=== PATIENT | male | born 1980 | race African-American/Black ===

== ENCOUNTER 2017-12-20 09:26 | Emergency (ER) | payer OTHER ==
[~2017-12-20] VITALS: Ht 185.4 cm; Wt 104.3 kg
--- NOTE | ~2017-12-20 | EKG ---
[address] [place] [address] ELECTROCARDIOGRAM REPORT Name: BELINDA NICHOLS Room #: DEP ALEISHA Cleary#: [id number] Admission: 12/20/17 Attend Phys: Discharge: 12/20/17 Date of : 78 Report #: [id number] THIS REPORT FOR: //name// [facility] ED Test Date: 2017-12-20 Test Time: 09:44:45 Pat Name: BELINDA NICHOLS Department: Room: Gender: Grassroots Organizer: nmd : 1980 Requested By: Nessa Hanks Order Number: [id number] MD: Giovani Venegas Measurements Intervals [place] Rate: 77 P: 44 NV: 148 QRS: -15 QRSD: 89 T: 7 QT: 365 QTc: 414 Interpretive Statements Sinus rhythm Baseline wander in lead(s) V1 Compared to ECG 09/08/2011 19:52:26 No significant changes Electronically Signed On 12-20-2017 16:32:08 CDT by Giovani Venegas [email or web address] <ELECTRONICALLY SIGNED> By: Giovani Venegas MD, [facility] 12/20/17 1632 0944 0944 Giovani Venegas MD, FACC /EPI
[~2017-12-20 09:26] MED LIST: TOPROL XL25 MG
[2017-12-20 09:51] LABS: ABSOLUTE NEUTROPHILS 2.9 thou/uL (1.4-8.2); BASOPHILS 0.4 % (0.0-2.0); EOSINOPHILS 0.7 % (0.0-3.0); HEMATOCRIT 43.9 % (42.0-52.0); HEMOGLOBIN 15.2 gm/dL (14.0-18.0); LYMPHOCYTES 41.1 % (24.0-44.0); MCH 26.9 pg (26.0-34.0); MCHC 34.7 g/dL (28.0-37.0); MCV 77.5 fL (80.0-100.0); MONOCYTES 8.7 % (1.0-8.0); PLATELET COUNT 223 thou/uL (150-400); POLYS 49.1 % (36.0-66.0); RBC 5.67 mil/uL (4.50-6.00); RDW 14.1 % (10.5-14.5); WBC 5.9 thou/uL (4.0-11.0)
[2017-12-20 09:58] LABS: ANION GAP 5 mmol/L (7-16); BUN 12 mg/dL (7-18); CALCIUM 9.3 mg/dL (8.5-10.1); CHLORIDE 101 mmol/L (98-107); CO2 28 mmol/L (21-32); CREATININE 1.2 mg/dL (0.7-1.3); GLUCOSE 123 mg/dL (74-106); POTASSIUM 3.5 mmol/L (3.5-5.1); SODIUM 134 mmol/L (136-145)
[2017-12-20 10:07] LABS: TROPONIN-I <0.06 ng/mL (<0.06)
[2017-12-20 11:07] VITALS: BP 150/92
== END 2017-12-20 11:07 | disposition home or self-care (01) ==
LOC: ER 09:26
PROVIDERS: Emergency Medicine
DX: R00.2 Palpitations (principal); Z88.1 Allergy status to other antibiotic agents

== ENCOUNTER 2020-04-27 00:53 | Emergency (ER) | payer BC, OTHER ==
[~2020-04-27] VITALS: Ht 185.4 cm; Wt 104.3 kg
[2020-04-27] MEDS ORDERED: CHILDREN'S ASPI81 M1 PO (01:01)
[2020-04-27 02:14] LABS: HEMATOCRIT 44.1 % (42.0-52.0); HEMOGLOBIN 14.5 gm/dL (14.0-18.0); MCHC 32.8 g/dL (28.0-37.0); MCV 79.3 fL (80.0-100.0); RBC 5.57 mil/uL (4.50-6.00); RDW 14.4 % (10.5-14.5); WBC 8.2 thou/uL (4.0-11.0)
[2020-04-27 02:17] LABS: CALCIUM 8.9 mg/dL (8.5-10.1); CREATININE 1.4 mg/dL (0.7-1.3); MAGNESIUM 1.5 mg/dL (1.8-2.4); POTASSIUM 3.3 mmol/L (3.5-5.1)
[2020-04-27] MEDS ORDERED: TOPROL XL25 MG PO (06:01)
[2020-04-27 06:19] VITALS: BP 139/97
--- NOTE | 2020-04-27 07:30 | EKG ---
[facility] [place] [address] ELECTROCARDIOGRAM REPORT Name: BELINDA NICHOLS Room #: DEP [facility]#: [id number] Admission: 04/27/20 Attend Phys: Discharge: 04/27/20 Date of : [birth year] Report #: [id number] THIS REPORT FOR: cc: NO FAMILY PHYSICIAN or PCP NO FAMILY PHYSICIAN or PCP Rd Matos MD [facility] ~ THIS REPORT FOR: //name// [facility] ED Test Date: 2020-04-27 Test Time: 01:08:26 Pat Name: BELINDA NICHOLS Department: Room: Gender: M Steam Presser: NNAMDI : 1980 Requested By: Asaf Salinas Order Number: [id number] MD: Rd Matos Measurements Intervals [place] Rate: 121 P: MA: QRS: -17 QRSD: 85 T: 0 QT: 315 QTc: 447 Interpretive Statements Atrial fibrillation Borderline left axis deviation Compared to ECG 12/20/2017 09:44:45 Sinus rhythm no longer present Electronically Signed On 04-27-2020 7:29:[address] Matos [email or web address] <ELECTRONICALLY SIGNED> By: Rd Matos MD, FACC 04/27/20 [address] Matos MD, FACC /EPI
--- NOTE | 2020-04-27 12:50 | EKG ---
[facility] [place] [address] ELECTROCARDIOGRAM REPORT Name: BELINDA NICHOLS Room #: DEP [facility]#: [id number] Admission: 04/27/20 Attend Phys: Discharge: 04/27/20 Date of : [birth year] Report #: [id number] THIS REPORT FOR: cc: NO FAMILY PHYSICIAN or PCP NO FAMILY PHYSICIAN or PCP Giovani Venegas MD [facility] ~ THIS REPORT FOR: //name// [facility] ED Test Date: 2020-04-27 Test Time: 02:08:06 Pat Name: BELINDA NICHOLS Department: Room: Gender: M Network Engineer Administrator: jonathan : 1980 Requested By: Asaf Salinas Order Number: [id number] MD: Giovani Venegas Measurements Intervals [place] Rate: 94 P: 49 CT: 168 QRS: -13 QRSD: 91 T: 14 QT: 337 QTc: 422 Interpretive Statements Sinus rhythm No significant abnormality Compared to ECG 04/27/2020 01:08:26 No significant change was found Electronically Signed On 04-27-2020 12:50:31 CDT by Giovani Venegas [email or web address] <ELECTRONICALLY SIGNED> By: Giovani Venegas MD, FAC 04/27/20 1250 7 7 Giovani Venegas MD, [facility] /EPI
--- NOTE | 2020-04-28 08:30 | EKG ---
[facility] [place] [address] ELECTROCARDIOGRAM REPORT Name: BELINDA NICHOLS Room #: DEP [facility]#: [id number] Admission: 04/27/20 Attend Phys: Discharge: 04/27/20 Date of : [birth year] Report #: [id number] THIS REPORT FOR: cc: NO FAMILY PHYSICIAN or PCP NO FAMILY PHYSICIAN or PCP Giovani Venegas MD [facility] ~ THIS REPORT FOR: //name// [facility] ED Test Date: 2020-04-27 Test Time: 01:57:05 Pat Name: BELINDA NICHOLS Department: Room: Gender: M Tufting Machine Operator: jonathan : 1980 Requested By: Asaf Salinas Order Number: [id number] MD: Giovani Venegas Measurements Intervals [place] Rate: 137 P: MD: QRS: -5 QRSD: 92 T: 10 QT: 315 QTc: 476 Interpretive Statements Atrial fibrillation Borderline prolonged QT interval Compared to ECG 04/27/2020 01:08:26 No significant changes Electronically Signed On 04-28-2020 8:30:45 CDT by Giovani Venegas [email or web address] <ELECTRONICALLY SIGNED> By: Giovani Venegas MD, [facility] 04/28/20 0830 6 6 Giovani Venegas MD, FAC /EPI
--- NOTE | 2020-04-28 08:31 | EKG ---
[facility] [place] [address] ELECTROCARDIOGRAM REPORT Name: BELINDA NICHOLS Room #: DEP [facility]#: [id number] Admission: 04/27/20 Attend Phys: Discharge: 04/27/20 Date of : [birth year] Report #: [id number] THIS REPORT FOR: cc: NO FAMILY PHYSICIAN or PCP NO FAMILY PHYSICIAN or PCP Giovani Venegas MD [facility] ~ THIS REPORT FOR: //name// [facility] ED Test Date: 2020-04-27 Test Time: 02:03:32 Pat Name: BELINDA NICHOLS Department: Room: Gender: M Shuttle Inspector: jonathan : 1980 Requested By: Asaf Salinas Order Number: [id number] MD: Giovani Venegas Measurements Intervals [place] Rate: 103 P: 47 IN: 164 QRS: -7 QRSD: 93 T: 16 QT: 324 QTc: 424 Interpretive Statements Sinus tachycardia Otherwise no significant abnormality Compared to ECG 04/27/2020 01:57:05 Atrial fibrillation no longer present Electronically Signed On 04-28-2020 8:31:21 CDT by Giovani Venegas [email or web address] <ELECTRONICALLY SIGNED> By: Giovani Venegas MD, FAC 04/28/20 0831 2 2 Giovani Venegas MD, [facility] /EPI
== END 2020-04-27 06:21 | disposition home or self-care (01) ==
LOC: ER 00:53
PROVIDERS: Emergency Medicine
DX: I48.91 Unspecified atrial fibrillation (principal); E87.6 Hypokalemia; E83.42 Hypomagnesemia; Z88.1 Allergy status to other antibiotic agents; Z79.82 Long term (current) use of aspirin

== ENCOUNTER → 2020-10-21 | Outpatient (CLI) | payer BC, OTHER ==
[~2020-10-21] MED LIST changes: +CHILDREN'S ASPI81 M1 PO; +TOPROL XL25 MG PO
== END ==
LOC: SJCVCIMAG 10:14
PROVIDERS: ATTEND Internal Medicine Cardiovascular Disease
DX: I08.1 Rheumatic disorders of both mitral and tricuspid valves (principal); I11.9 Hypertensive heart disease without heart failure; I48.91 Unspecified atrial fibrillation